=== PATIENT | male | born 1955 | race Caucasian/White ===

== ENCOUNTER → 2017-05-25 | Outpatient (CLI) | payer OTHER ==
[~2017-05-25] MED LIST: 00186-0370-20 IH; ASPIRIN 32325 MG/TAB PO; ASPIRIN 81M81 MG/TA2 PO; B-121000 MCG PO; CARDIZEM120 MG PO; COREG12.5 MG PO; GLUCOPHAGE1000 MG PO; HYZAAR 12.5 MG-1 TAB PO; LIPITOR 40MG TA40 MG PO; MIRAPEX0.5 MG PO; NEURONTIN300 MG/CAP PO; NEXIUM 40MG40 MG PO; NITROQUICK0.4 MG SL; NITROSTAT0.4 MG/TAB SL; NORVASC 5MG5 MG/TAB PO; PLAVIX 75MG TAB75 MG PO; PLETAL 100MG T100 MG PO; PROVENTIL0.09 MG/A1 IH; REQUIP 1MG T1 MG/TAB PO; VIAGRA50 M1 PO; VIAGRA50 MG PO; VITAMIN D31000 IU PO; ZANTAC 150MG T150 MG PO; ZOCOR 40MG40 MG PO
[2017-05-25 13:02] LABS: CALCIUM 9.6 mg/dL (8.4-10.2); CREATININE, serum 1.27 mg/dL (0.66-1.25); POTASSIUM 4.3 mmol/L (3.4-5.0)
[2017-05-25 18:11] LABS: HEMATOCRIT 44.1 % (42.0-52.0); HEMOGLOBIN 14.6 g/dl (13.5-18.0); MEAN CELL VOLUME 95 fl (80.0-100.0); MEAN CORPUSCULAR HEMOGLOBIN 31 pg (27.0-31.0); MEAN CORPUSCULAR HGB CONC 33 g/dl (33.0-37.0); PLATELET COUNT 189 K/mm3 (130-400); RED BLOOD COUNT 4.65 M/mm3 (4.20-5.60); REDCELL DISTRIBUTION WIDTH-CV 13.2 % (11.5-14.5); WHITE BLOOD COUNT 7.3 K/mm3 (4.8-10.8)
== END ==
LOC: COL.LAB 12:11
PROVIDERS: Psychiatry & Neurology Psychiatry
DX: Z01.89 Encounter for other specified special examinations (principal)

== ENCOUNTER → 2017-09-02 | Outpatient (CLI) | payer OTHER | LOC: COL.RAD 13:15 | DX: Z01.812 Encounter for preprocedural laboratory examination (principal); I65.02 Occlusion and stenosis of left vertebral artery; G31.9 Degenerative disease of nervous system, unspecified; I65.22 Occlusion and stenosis of left carotid artery; I67.82 Cerebral ischemia; E04.1 Nontoxic single thyroid nodule; J43.8 Other emphysema; Z98.890 Other specified postprocedural states | CPT/HCPCS: Q9967 ==

== ENCOUNTER → 2019-06-30 | Outpatient (CLI) | payer OTHER | LOC: COL.RAD 07:51 | DX: M19.012 Primary osteoarthritis, left shoulder (principal) ==

== ENCOUNTER 2019-10-02 08:45 | Outpatient (RCR) | payer OTHER | END 2019-10-10 | disposition home or self-care (01) | LOC: WSPT | DX: M54.5 Low back pain (principal) ==

== ENCOUNTER 2019-11-17 08:45 | Outpatient (RCR) | payer MEDICARE, OTHER | END 2019-12-07 | disposition home or self-care (01) | LOC: WSPT | DX: M54.5 Low back pain (principal) ==

== ENCOUNTER 2021-06-30 08:28 | Day surgery (SDC) | payer MEDICARE, OTHER ==
[2021-06-30] VITALS (16 sets, daily range): BP systolic 124–165; BP diastolic 48–81; PULSE 50–80; TEMP 97.7–98.3
[~2021-06-30] VITALS: Ht 175.3 cm; Wt 83.9 kg
[~2021-06-30 08:28] MED LIST changes: +CARDIZEM CD 18180 MG PO; -CARDIZEM120 MG PO
[2021-06-30 09:18] LABS: HEMATOCRIT 40.4 % (42.0-52.0); HEMOGLOBIN 13.4 g/dl (13.5-18.0); MEAN CELL VOLUME 93 fl (80.0-100.0); MEAN CORPUSCULAR HEMOGLOBIN 31 pg (27.0-31.0); MEAN CORPUSCULAR HGB CONC 33 g/dl (33.0-37.0); MEAN PLATELET VOLUME 11.3 fl (7.4-10.4); PLATELET COUNT 157 K/mm3 (130-400); RED BLOOD COUNT 4.35 M/mm3 (4.20-5.60); REDCELL DISTRIBUTION WIDTH-CV 12.9 % (11.5-14.5)
[2021-06-30 09:28] LABS: CALCIUM 8.7 mg/dL (8.4-10.2); CREATININE, serum 1.11 (0.66-1.25)
[2021-06-30 09:29] LABS: INR 1.1 (0.8-3.0); PROTHROMBIN TIME 11.7 SECONDS (9.7-12.8)
[2021-06-30 09:31] LABS: PARTIAL THROMBOPLASTIN TIME 29.9 SECONDS (26.0-37.0)
[2021-06-30] MEDS ORDERED: LEVOXYL0.05 MG PO (09:43)
[2021-06-30] MEDS ORDERED: REFRESH OPTIVE0.4 M1 OP (09:44)
[2021-06-30] MEDS ORDERED: CRESTOR40 MG PO (09:46)
[2021-06-30] MEDS ORDERED: PRINIVIL5 MG PO (09:47)
--- NOTE | 2021-06-30 10:43 | NUR ---
SEE MERGE FOR ALL MEDICATION ADMINISTRATION TIMES, INTRA AND POST SEDATION ASSESSMENTS
--- NOTE | 2021-06-30 12:06 | NUR ---
PATIENT ARRIVES TO [facility] ROOM 12. REPORT AND CARE OF PATIENT RECEIVED FROM JAYLON BENSON. PATIENT'S AT BEDSIDE. PATIENT'S VSS. HR STRONG AND REGULAR. SB HEART RHYTHM PER TELEMETRY TECK. TR BAND NOTE TO R WRIST. NO ACTIVE BLEEDING NOTED. PATIENT ALERT. TAKING WATER AND COFFEE PO.
--- NOTE | 2021-06-30 12:10 | NUR ---
1210 PATIENT AWAKE AND ALERT. TOLERATING PO WELL. VSS. REPORT AND CARE OF PATIENT GIVEN TO JAYLON HORTA.
--- NOTE | 2021-06-30 12:20 | NUR ---
Pt sitting up in bed, eating lunch with 's assist. He denies pain or nausea. Right arm resting on pillow and TR band without bleeding. No pain in arm. CMS intact to right hand. Needs denied. Call light in reach.
--- NOTE | 2021-06-30 12:50 | NUR ---
Pt up to bathroom with 1 assist, gait steady. Pt able to void then assisted back to bed. He ate all of lunch and is tolerating fluids without nausea. He denies pain or discomforts. Right radial puncture site without drainage, TR band remains in place @ 12mls.
--- NOTE | 2021-06-30 13:20 | NUR ---
Report called to JAYLON Mary. Pt ambulates to wheelchair and is transported to room 351 by Wing Lopez RN. VS are stable. Radial artery puncture site without issue. Pt's and belongings accompany him to room.
--- NOTE | 2021-06-30 13:30 | NUR ---
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 Pt awake and alert, oriented x 4, denies pain, shortness of breath, dizziness or further c/o. TR band in place, no signs of bleeding, will release air around 1350 per orders. POC reviewed with pt, verbalizes understanding. No further needs reported. Call light in reach.
--- NOTE | 2021-06-30 14:00 | NUR ---
5 mls air released from TR band but bleeding starts immediately so air reinserted into band, will attempt again in approx 30 minutes.
--- NOTE | 2021-06-30 14:35 | NUR ---
Removed 5 mls air from TR band, small amount of bleeding noted, 5 mls reinserted into band. Pt denies pain or c/o. Call light in reach.
--- NOTE | 2021-06-30 15:52 | NUR ---
5 mls air released from TR band again with still small amount of oozing occurring so air reinserted into band. Call light in reach.
--- NOTE | 2021-06-30 16:47 | NUR ---
Right radial site still with small amount of oozing with release of air from TR band so air reinserted.
--- NOTE | 2021-06-30 18:03 | NUR ---
Attempted again to remove TR band by releasing 5 mls air, but oozing is noted at the punture site so 5 mls air reinserted. Pt denies pain or needs at this time. Call light in reach.
--- NOTE | 2021-06-30 19:25 | NUR ---
Report with JAYLON Reinoso. Pt resting in bed. 2 mls air released from TR Band without any signs of bleeding. Pt requesting CPAP be setup. RT notified.
--- NOTE | 2021-06-30 22:28 | NUR ---
Pt alert and oriented. Pt's radial site soft, no bleeding noted at this time. 2mls decreased with no signs of bleeding, total of 8mls in band left. Pt able to ambulate to bathroom tolerated well. Pt denies pain at this time, mentioned discomfort, but nothing needing interventions. Pt requested melatonin for sleeping, provider notified. Pt able to express needs.
--- NOTE | 2021-07-01 02:10 | NUR ---
Attempted to take 2mls out of band, small, slow bleed noted. Replaced 2mls and will continue to monitor. 8mls total in band at this time.
--- NOTE | 2021-07-01 03:03 | NUR ---
2mls removed from Radial band. No bleeding noted at this time. 6mls total left in band.
[2021-07-01 03:50] VITALS: BP 125/48; PULSE 49; TEMP 97.7
--- NOTE | 2021-07-01 03:56 | NUR ---
0345 2MLS TAKEN OUT. NO BLEEDING NOTED. 0357 2 MLS TAKEN OUT. 0400 LAST 2MLS REMOVED, NO BLEEDING NOTED. BANDAID IN PLACE.
--- NOTE | 2021-07-01 04:58 | NUR ---
Pt able to rest during night, used home CPAP while sleeping. Able to removed Radial band this AM at 0400. No bleeding noted. Pt denied need for pain medications. Pt conversed freely and able to express needs. Pt able to ambulate independently in room. Pt free from injury during shift.
[2021-07-01 07:23] LABS: CALCIUM 8.8 mg/dL (8.4-10.2); CREATININE, serum 1.13 (0.66-1.25); POTASSIUM 3.9 mmol/L (3.4-5.0)
--- NOTE | 2021-07-01 07:52 | NUR ---
PT SITTING UP IN BED UPON ENTRY. DENIES PAIN AND VSS. NO CONCERNS, PT STATES HE IS READY TO DISCHARGE.
[2021-07-01 07:56] VITALS: BP 126/51; PULSE 61; TEMP 98.6
--- NOTE | 2021-07-01 09:06 | NUR ---
SW met with the patient to discuss discharge plan. The patient lives in [place] with his , Arlene (ph#[phone]). He reports independence with ADLs and has a cane. The patient's PCP is Dr. Parikh at the [facility]. The patient does not have a DPOA-HC in EMR, but he states that he does have one completed. The patient plans to return home with his upon discharge. No additional needs at this time. *Discharge plan: home with *
--- NOTE | 2021-07-01 10:44 | NUR ---
Initial visit; Patient thanked Supervisor [employer] for looking in on him and offering Spiritual Care.
[2021-07-01] MEDS ORDERED: PLAVIX 75MG TAB75 MG PO (11:00)
[2021-07-01] MEDS ORDERED: TOPROL XL 50MG50 MG PO (11:01)
[2021-07-01 11:40] VITALS: BP 154/66; PULSE 49; TEMP 97.6
== END 2021-07-01 12:40 | disposition home or self-care (01) ==
LOC: COL.CAR 08:28 → MEDICAL 08:28 → COL.CAR 07-01 12:40
PROVIDERS: Internal Medicine Interventional Cardiology; Nurse Practitioner
DX: I25.118 Atherosclerotic heart disease of native coronary artery with other forms of angina pectoris (principal); R07.9 Chest pain, unspecified; I10 Essential (primary) hypertension; E11.9 Type 2 diabetes mellitus without complications; G47.33 Obstructive sleep apnea (adult) (pediatric); E78.5 Hyperlipidemia, unspecified; J44.9 Chronic obstructive pulmonary disease, unspecified; I73.9 Peripheral vascular disease, unspecified; Z20.822 Contact with and (suspected) exposure to COVID-19; M51.16 Intervertebral disc disorders with radiculopathy, lumbar region; M43.06 Spondylolysis, lumbar region; M47.892 Other spondylosis, cervical region; N52.9 Male erectile dysfunction, unspecified; G43.109 Migraine with aura, not intractable, without status migrainosus; Z98.61 Coronary angioplasty status; Z95.828 Presence of other vascular implants and grafts; Z87.891 Personal history of nicotine dependence; Z80.6 Family history of leukemia; Z79.82 Long term (current) use of aspirin; Z79.1 Long term (current) use of non-steroidal anti-inflammatories (NSAID); Z79.899 Other long term (current) drug therapy
CPT/HCPCS: OP; C1725; C1769; C1874; C1887; C9600; J0583; J1644; J2250; J3010

== ENCOUNTER → 2021-10-17 | Outpatient (RCR) | payer MEDICARE, OTHER ==
[~2021-10-17] MED LIST changes: +CRESTOR40 MG PO; +LEVOXYL0.05 MG PO; +PRINIVIL5 MG PO; +REFRESH OPTIVE0.4 M1 OP; +TOPROL XL 50MG50 MG PO
== END | disposition home or self-care (01) ==
LOC: COL.CR
DX: Z48.812 Encounter for surgical aftercare following surgery on the circulatory system (principal); Z95.5 Presence of coronary angioplasty implant and graft

== ENCOUNTER → 2022-07-23 | Outpatient (CLI) | payer MEDICARE, OTHER | LOC: COL.RAD 13:41 | DX: M43.27 Fusion of spine, lumbosacral region (principal); M79.604 Pain in right leg | CPT/HCPCS: A9575 ==

== ENCOUNTER 2022-09-24 07:53 | Outpatient (RCR) | payer MEDICARE, OTHER | END 2022-09-28 | disposition home or self-care (01) | LOC: WSPT | DX: M54.16 Radiculopathy, lumbar region (principal) ==

== ENCOUNTER → 2024-08-31 | Outpatient (CLI) | payer MEDICARE, OTHER ==
[~2024-08-31] MED LIST changes: +Iohexol 300 - 100 ML VIAL IV ONE; +NS 100 ML IV SCH
== END ==
LOC: COL.RAD 06:48
DX: N28.1 Cyst of kidney, acquired (principal); I25.10 Atherosclerotic heart disease of native coronary artery without angina pectoris
CPT/HCPCS: Q9967